=== PATIENT | male | born 1950 | race African-American/Black ===

== ENCOUNTER 2019-03-22 12:47 | Outpatient (CLI) | payer OTHER ==
[2019-03-22] MEDS ORDERED: Will bring list DOS (13:26)
[2019-03-22 13:56] LABS: MEAN CORPUSCULAR HEMOGLOBIN 30.4 pg (27.5-34.5); MEAN CORPUSCULAR HGB CONC 32.6 g/dL (33.2-36.2); MEAN CORPUSCULAR VOLUME 93.2 fL (81-97); PLATELET COUNT 231 x10^3/uL (130-400); RED BLOOD COUNT 3.95 x10^6/uL (4.38-5.82); RED CELL DISTRIBUTION WIDTH 14.6 % (9.4-14.8)
[2019-03-22 14:02] LABS: INTERNATIONAL NORMALIZED RATIO 0.93 (0.93-1.1); PROTHROMBIN TIME 9.8 Seconds (9.6-11.5)
[2019-03-22 14:03] LABS: ALANINE AMINOTRANSFERASE 19 U/L (12-78); ALBUMIN 3.7 g/dL (3.4-5.0); ANION GAP 6 mmol/L (5-15); CALCIUM 9.2 mg/dL (8.5-10.1); CHLORIDE 113 mmol/L (98-107)
[2019-03-22 14:05] LABS: ALKALINE PHOSPHATASE 218 U/L (45-117); BILIRUBIN,TOTAL 0.3 mg/dL (0.2-1.0); CREATININE 1.82 mg/dL (0.7-1.3); TOTAL PROTEIN 7.5 g/dL (6.4-8.2)
[2019-03-22 15:07] LABS: BASOPHILS # (AUTO) 0.02 x10^3/uL (0-0.1); BASOPHILS % (AUTO) 0 % (0-1); EOSINOPHILS # (AUTO) 0.08 x10^3/uL (0-0.4); EOSINOPHILS % (AUTO) 2 % (1-7); LYMPHOCYTES # (AUTO) 1.36 x10^3/uL (1-3.4); LYMPHOCYTES % (AUTO) 29 % (22-44); MD NO; MEAN PLATELET VOLUME 8.1 fL (7.4-10.4); MONOCYTES # (AUTO) 0.35 x10^3/uL (0.2-0.8); MONOCYTES % (AUTO) 8 % (2-9); NEUTROPHILS # (AUTO) 2.85 x10^3/uL (1.8-6.8); NEUTROPHILS % (AUTO) 61 % (42-75)
== END 2019-03-22 23:59 | disposition home or self-care (01) ==
LOC: STAR 12:47
PROVIDERS: ATTEND Neurological Surgery
DX: Z01.818 Encounter for other preprocedural examination (principal); M54.16 Radiculopathy, lumbar region
CPT/HCPCS: 36415; 80053; 85025; 85610; 85730; 93005

== ENCOUNTER 2019-03-31 05:39 | Day surgery (SDC) | payer OTHER ==
[~2019-03-31] VITALS: Ht 188 cm; Wt 85.3 kg
[~2019-03-31 05:39] MED LIST: Will bring list DOS
[2019-03-31] MEDS ORDERED: VANCOMYCIN 1,000 MG ONE (06:56)
[2019-03-31] MEDS ORDERED: BACITRACIN OINT 500U/GM, 15 GM ONE (06:56)
[2019-03-31] MEDS ORDERED: methylPREDNISolone *ACETATE* 40 MG/ML ONE (06:56)
[2019-03-31] MEDS ORDERED: BACITRACIN 50,000 UNIT ONE (06:56)
[2019-03-31] MEDS ORDERED: EPINEPHRINE 1 MG/ML, 1ML ONE (06:56)
[2019-03-31] MEDS ORDERED: BUPIVACAINE/PF 0.5% ONE (06:56)
[2019-03-31] MEDS ORDERED: LACTATED RINGERS 1,000 ML IV SCH (07:06)
[2019-03-31 07:16] VITALS: BP 179/100
[2019-03-31] MEDS ORDERED: INSULIN SQ (07:27)
[2019-03-31] MEDS ORDERED: LISI-170 PO (07:27)
[2019-03-31] MEDS ORDERED: CYCL-259 PO (07:27)
[2019-03-31] MEDS ORDERED: CHOL25CR2 PO (07:27)
[2019-03-31] MEDS ORDERED: GLIP5TAB10 PO (07:27)
[2019-03-31] MEDS ORDERED: ATOR40TA78 PO (07:27)
[2019-03-31] MEDS ORDERED: FERR324T5 PO (07:27)
[2019-03-31] MEDS ORDERED: ACETAMINOPHEN 500 MG TABLET PO ONE (07:30)
[2019-03-31] MEDS ORDERED: GABAPENTIN 300 MG CAPSULE PO ONE (07:30)
[2019-03-31] MEDS ORDERED: MIDAZOLAM 1 MG/ML, 2ML ONE (08:12)
[2019-03-31] MEDS ORDERED: FENTANYL PF 250 MCG/5ML ONE (08:12)
[2019-03-31] MEDS ORDERED: CEFAZOLIN 1,000 MG ONE (08:16)
[2019-03-31] MEDS ORDERED: NEOSTIGMINE 1 MG/ML, 10ML ONE (08:16)
[2019-03-31] MEDS ORDERED: ROCURONIUM 10MG/ML,5ML ONE (08:16)
[2019-03-31] MEDS ORDERED: GLYCOPYRROLATE 0.2MG/1ML, 5ML ONE (08:16)
[2019-03-31] MEDS ORDERED: PROPOFOL 10 MG/ML, 20ML ONE (08:16)
[2019-03-31] MEDS ORDERED: hydrALAzine 20 MG/ML, 1ML IV PRN (09:00)
[2019-03-31] MEDS ORDERED: FENTANYL PF 100 MCG/2ML IV PRN (09:00)
[2019-03-31] MEDS ORDERED: OXYcodone 5 MG/5 ML ORAL.SOL UDC PO PRN (09:00)
[2019-03-31] MEDS ORDERED: ONDANSETRON 2MG/ML, 2ML IV PRN (09:00)
[2019-03-31] MEDS ORDERED: MORPHINE SULFATE 4 MG/ML, 1ML IVPush PRN (09:00)
[2019-03-31] MEDS ORDERED: MEPERIDINE/PF 25MG/ML,1ML IVPush PRN (09:00)
[2019-03-31] MEDS ORDERED: LABETALOL 5MG/ML, 20ML IV PRN (09:00)
[2019-03-31] MEDS ORDERED: HYDROmorphone 2 MG/ML, 1ML IVPush PRN (09:00)
[2019-03-31] MEDS ORDERED: CYCLOBENZAPRINE 10 MG TABLET PO PRN (09:30)
[2019-03-31] MEDS ORDERED: ATORVASTATIN 40 MG TABLET PO SCH (21:00)
[2019-04-01] MEDS ORDERED: LISINOPRIL 20 MG TABLET PO SCH (09:00)
== END 2019-03-31 12:30 | disposition home or self-care (01) ==
LOC: OUT 05:39
PROVIDERS: ATTEND Neurological Surgery
DX: M51.16 Intervertebral disc disorders with radiculopathy, lumbar region (principal); M48.061 Spinal stenosis, lumbar region without neurogenic claudication; I10 Essential (primary) hypertension; F19.90 Other psychoactive substance use, unspecified, uncomplicated; F15.90 Other stimulant use, unspecified, uncomplicated; E11.9 Type 2 diabetes mellitus without complications; M47.816 Spondylosis without myelopathy or radiculopathy, lumbar region; Z98.890 Other specified postprocedural states; Z87.891 Personal history of nicotine dependence; Z79.84 Long term (current) use of oral hypoglycemic drugs
CPT/HCPCS: 36415; 63030; 72100; 82962; 86850; 86900; J0171; J0690; J1030; J2250; J2704; J2710; J3010; J7120; J3370